=== PATIENT | female | born 1990 | race Caucasian/White ===

== ENCOUNTER 2018-06-24 13:27 | Emergency (ER) | payer BC ==
[2018-06-24] MEDS ORDERED: LIDOCAINE 1% INJ-PF (10 MG/ML) 30 ML SDV INJ ONE (15:25)
--- NOTE | 2018-06-24 15:27 | ER Document Report ---
ED Animal Bite - General Chief Complaint: Dog Bite Stated Complaint: POSSIBLE DOG BITE Notes: This is a 28-year-old healthy female patient playing with her vaccinated beagle dog that bit her in the lip. Right upper lip with laceration. Abrasions to the left upper lip. Bleeding is controlled. No other injuries. Up-to-date on all of her immunizations. TRAVEL OUTSIDE OF THE [place] IN LAST 30 DAYS: No - HPI Location of injury: Face Severity of injury: Bitten Onset: Just prior to arrival Pain Level: 2 Severity: Mild Context of attack: Playing with animal Type of animal: Dog Appearance of animal: Appeared well Animal's immunizations: UTD - Related Data Allergies/Adverse Reactions: latex Allergy (Verified 06/24/18 13:28) Past Medical History - General Information source: Patient - Social History Smoking Status: Never Smoker Cigarette use (# per day): No Frequency of alcohol use: None Drug Abuse: None Lives with: Family Family History: Reviewed & Not Pertinent Review of Systems - Review of Systems Constitutional: denies: Fever, Malaise, Weakness EENT: See HPI, Other - Laceration lip. denies: Eye pain, Ear pain Cardiovascular: denies: Heart racing, Dyspnea, Lightheaded Skin: See HPI, Other - Linear laceration to the upper lip Hematologic/Lymphatic: denies: Easy bleeding Neurological/Psychological: denies: Paralysis, Numbness Physical Exam - Vital signs Vitals: Temp Pulse Resp BP Pulse Ox 99.1 F 109 H 16 144/85 H 100 06/24/18 13:56 06/24/18 13:56 06/24/18 13:56 06/24/18 13:56 06/24/18 13:56 Interpretation: Normal - General General appearance: Appears well, Alert - HEENT Head: Normocephalic, Atraumatic Eyes: Normal Pupils: PERRL Mouth/Lips: Other - There is a 1 cm linear laceration on the right upper lip crosses the vermilion border. There are a few small abrasions on the left upper lip nasolabial fold area that do not appear suturable. Mucous membranes: Other Neck: Normal - Neurological Neuro grossly intact: Yes Cognition: Normal Orientation: AAOx4 Sensory: Normal - Skin Skin Temperature: Warm Skin Moisture: Dry Skin Color: Normal, Other - Abrasion to the left nasolabial fold area. Laceration to the right upper lip. Course - Re-evaluation Re-evalutation: 06/24/18 16:07 Lacerations repair. No complications. Advised to return in 3-5 days for suture removal. Antibiotics prescribed based on dog bite. Morning signs given with regards to cellulitis worsening symptoms. Patient stable at this time for discharge. - Vital Signs Vital signs: Temp Pulse Resp BP Pulse Ox 99.1 F 109 H 16 144/85 H 100 06/24/18 13:56 06/24/18 13:56 06/24/18 13:56 06/24/18 13:56 06/24/18 13:56 Procedures - Laceration/Wound Repair Face Wound length (cm): 1 Wound's Depth, Shape: Linear Volume Anesthetic (mLs): 6 Wound explored: Clean Wound Repaired With: Sutures Suture Size/Type: 5:0, Prolene Number of Sutures: 4 Layer Closure?: No Post-procedure NV exam normal: Yes Complications: No Discharge - Discharge Clinical Impression: Laceration of lip Qualifiers: Encounter type: initial encounter Qualified Code(s): S01.511A - Laceration without foreign body of lip, initial encounter Dog bite of face Qualifiers: Encounter type: initial encounter Qualified Code(s): S01.85XA - Open bite of other part of head, initial encounter; W54.0XXA - Bitten by dog, initial encounter; W54.0XXA - Bitten by dog, initial encounter Condition: Good Disposition: HOME, SELF-CARE Instructions: Antibiotic Ointment Protection ([facility]), Laceration Care ([facility]), Prophylactic Antibiotic ([facility]), Animal Bites ([facility]) Additional Instructions: Return in 3-5 days for suture removal. Take antibiotics as instructed. If redness swelling, drainage or any signs of infection occurs please return for repeat evaluation. Prescriptions: Amox Tr/Potassium Clavulanate [Augmentin 875-125 Tablet] 1 tab PO BID 5 Days # 10 tablet
[2018-06-24] MEDS ORDERED: AMOXICILLIN TR/POT CLAVULANATE 500-125 MG TAB PO ONE (16:03)
[2018-06-24 16:45] VITALS: BP 113/80
== END 2018-06-24 16:45 | disposition home or self-care (01) ==
LOC: ER 13:27
DX: S01.551A Open bite of lip, initial encounter (principal); W54.0XXA Bitten by dog, initial encounter; Y93.K9 Activity, other involving animal care
CPT/HCPCS: 99283; 12011; J3490